=== PATIENT | male | born 1940 | race Caucasian/White ===

== ENCOUNTER 2018-04-05 00:53 | Outpatient (CLI) | payer MEDICARE, BC ==
[~2018-04-05 00:53] MED LIST: AMIT-189 PO; ASPI-1264 PO; ATOR10TA87 PO; DOCU100C41 PO; FISH12002 PO; LEVO500T89 PO; LOSA25TA96 PO; PANT40TA4 PO; SENN-161 PO
== END 2018-04-05 23:59 | disposition home or self-care (01) ==
LOC: DIABETIC 00:53
PROVIDERS: ATTEND Family Medicine
DX: R63.4 Abnormal weight loss (principal); R53.83 Other fatigue; E11.9 Type 2 diabetes mellitus without complications; I10 Essential (primary) hypertension; Z79.899 Other long term (current) drug therapy
CPT/HCPCS: 97802